=== PATIENT | female | born 1960 | race Caucasian/White ===

== ENCOUNTER 2017-06-22 18:39 | Emergency (ER) | payer MEDICARE, MEDICAID ==
[2017-06-22] MEDS ORDERED: 0.9 % SODIUM CHLORIDE 1,000 ML BAG IV ONE (19:22)
--- NOTE | 2017-06-22 19:25 | Emergency Department Record ---
History of Present Illness - General Chief Complaint: Dizziness Stated Complaint: DIZZY,WEAK Time Seen by Provider: 06/22/17 19:11 Source: Patient, EMS Mode of Arrival: EMS Limitations: No limitations - History of Present Illness Initial Comments: pt brought in via ems for weakness. pt was recently admitted to [facility] for rapid heartrate and had he med increased. since then she has felt extremely weak and has been unable to function. she did take her serequel this afternoon which is unusual as she usually takes it at night. MD Complaint: Other (general weakness) Onset/Timin -: Days(s) Timing: Gradual onset Description: Lightheadedness History of Same: No History of Trauma: No Severity: Moderate Improves With: Nothing Worsens With: Nothing Associated Symptoms: Weakness - [place] Coma Scale Eye Response: (4) Open spontaneously Motor Response: (6) Obeys commands Verbal Response: (5) Oriented [place] Total: 15 - Symptoms of Stroke Symptoms of stroke: Dizziness, Muscle Weakness - Related Data Previous Rx's Medication Instructions Recorded Hydrocodone/Acetaminophen [[place] 1 tab PO Q8H PRN #45 tab 03/12/16 10mg/325mg] Ondansetron [Zofran Odt] 8 mg SL Q8H PRN #45 tab.rapdis 03/21/16 Allergies Allergy/AdvReac Type Severity Reaction Status Date / Time trazodone Allergy SWELLING Verified 06/22/17 18:42 OF THE TONGUE Travel Screening - Travel/Exposure Within Last 30 Days Have you traveled within the last 30 days?: No - Travel/Exposure Within Last Year Have you traveled outside the [place] in the last year?: No - Additonal Travel Details Have you been exposed to anyone with a communicable illness?: No - Travel Symptoms Symptom Screening: None Review of Systems Reviewed: No additional complaints except as noted below Constitutional: Reports: As per HPI. Denies: Chills, Fever, Malaise, Night sweats, Weakness, Weight change Eyes: Reports: As per HPI. Denies: Eye discharge, Eye pain, Photophobia, Vision change ENT: Reports: As per HPI. Denies: Congestion, Dental pain, Ear pain, Epistaxis , Hearing loss, Throat pain Respiratory: Reports: As per HPI. Denies: Cough, Dyspnea, Hemoptysis, Stridor, Wheezes Cardiovascular: Reports: As per HPI. Denies: Arrhythmia, Chest pain, Dyspnea on exertion, Edema, Murmurs, Orthopnea, Palpitations, Paroxysmal nocturnal dyspnea, Rheumatic Fever, Syncope Endocrine: Reports: As per HPI. Denies: Fatigue, Heat or cold intolerance, Polydipsia, Polyuria Gastrointestinal: Reports: As per HPI. Denies: Abdominal pain, Constipation, Diarrhea, Hematemesis, Hematochezia, Melena, Nausea, Vomiting Genitourinary: Reports: As per HPI. Denies: Abnormal menses, Discharge, Dyspareunia, Dysuria, Frequency, Hematuria, Incontinence, Retention, Urgency Musculoskeletal: Reports: As per HPI. Denies: Arthralgia, Back pain, Gout, Joint swelling, Myalgia, Neck pain Skin: Reports: As per HPI. Denies: Bruising, Change in color, Change in hair/ nails, Lesions, Pruritus, Rash Neurological: Reports: As per HPI. Denies: Abnormal gait, Confusion, Headache, Numbness, Paresthesias, Seizure, Tingling, Tremors, Vertigo, Weakness Psychiatric: Reports: As per HPI. Denies: Anxiety, Auditory hallucinations, Depression, Homicidal thoughts, Suicidal thoughts, Visual hallucinations Hematological/Lymphatic: Reports: As per HPI. Denies: Anemia, Blood Clots, Easy bleeding, Easy bruising, Swollen glands Past Medical History - SOCIAL HISTORY Smoking Status: Current every day smoker Alcohol Use: Rare Drug Use: None - MOTEL OPERATOR History MOTEL OPERATOR history: Reports: no MOTEL OPERATOR history - RESPIRATORY Hx Respiratory Disorders: Yes Hx Bronchitis: Yes Hx COPD: Yes - CARDIOVASCULAR Hx Cardio Disorders: Yes Comment:: "fluid on the heart." - NEURO Hx Neuro Disorders: Yes Hx Headaches: Yes - GI Hx GI Disorders: Yes Hx Reflux: Yes Hx Liver Disease: Yes (Hep C from transfusion) - Hx Genitourinary Disorders: No - ENDOCRINE Hx Endocrine Disorders: Yes Hx Diabetes: Yes Hx Thyroid Disease: No - MUSCULOSKELETAL Hx Musculoskeletal Disorders: Yes Hx Back Injury: Yes (DJD) - PSYCH Hx Psych Problems: Yes Hx Anxiety: Yes Hx Depression: Yes - HEMATOLOGY/ONCOLOGY Hx Hematology/Oncology Disorders: Yes Hx Blood Transfusions: Yes Hx Blood Transfusion Reaction: Yes (Hep C from it.) Family Medical History Any Significant Family History?: Yes Hx Cancer: Mother *Cancer Comment: BREAST AND BLADDER Physical Exam - General General Appearance: Alert, Oriented x3, Cooperative, Mild distress, Other (pt appears sedated and talks with her eyes closed) - Head Head exam: Normal inspection - Eye Eye exam: Normal appearance, PERRL, EOMI Pupils: Normal accommodation - ENT ENT exam: Normal exam, Mucous membranes dry, Normal external ear exam, Normal orophraynx Ear exam: Normal external inspection. negative: External canal tenderness Nasal Exam: Normal inspection. negative: Discharge, Sinus tenderness Mouth exam: Normal external inspection, Tongue normal Teeth exam: Normal inspection. negative: Dental caries Throat exam: Normal inspection. negative: Tonsillar erythema, Tonsillar exudate - Neck Neck exam: Normal inspection, Full ROM. negative: Tenderness - Respiratory Respiratory exam: Normal lung sounds bilaterally. negative: Respiratory distress - Cardiovascular Cardiovascular Exam: Regular rate, Normal rhythm, Normal heart sounds, Systolic murmur - GI/Abdominal GI/Abdominal exam: Soft, Normal bowel sounds. negative: Tenderness - Rectal Rectal exam: Deferred - exam: Deferred - Extremities Extremities exam: Normal inspection, Full ROM, Normal capillary refill. negative: Tenderness - Back Back exam: Reports: Normal inspection, Full ROM. Denies: Muscle spasm, Rash noted, Tenderness - Neurological Neurological exam: Alert, CN II-XII intact, Normal gait, Oriented X3 - Psychiatric Psychiatric exam: Normal affect, Normal mood - Skin Skin exam: Dry, Intact, Normal color, Warm Course Vital Signs 06/22/17 18:52 Temperature 98.7 F Pulse Rate 92 H Respiratory 20 Rate Blood Pressure 108/62 Pulse Ox 97 - Reevaluation(s) Reevaluation #1: 06/22/17 21:18 pt feels much better Medical Decision Making - Lab Data Result diagrams: 06/22/17 18:25 06/22/17 18:25 Disposition Disposition: Discharge Clinical Impression: Dehydration Disposition: Home, Self-Care Condition: (1) Good Instructions: Dehydration (ED) Additional Instructions: follow up with family doctor. return sooner if worse. push fluids Forms: Patient Portal Access Quality - Quality Measures Quality Measures: N/A - Blood Pressure Screening Does Patient Have Any of the Following: No Blood Pressure Classification: Normal BP Reading Systolic Measurement: 108 Diastolic Measurement: 62 Screening for High Blood Pressure: < Normal BP, F/U Not Required > [G8783]
[2017-06-22 19:33] LABS: BASO % 0.4 % (0-6); EOS % 2.1 % (0-6); GRAN % 54.1 % (47-80); LYMPH % 33.6 % (16-45); MEAN CELL VOLUME 67.8 fl (81-97); MEAN CORPUSCULAR HGB CONC 31.3 g/dl (32-36); MEAN PLATELET VOLUME 8.4 fl (7.4-10.4); MONO % 9.8 % (0-9); PLATELET COUNT 544 K/uL (130-400); RED BLOOD COUNT 4.72 M/uL (3.80-5.40); WHITE BLOOD COUNT W/O DIFF 8.5 K/uL (4.2-12.2)
[2017-06-22 19:44] LABS: ALB/GLOB RATIO 1.3 (1.1-1.8); ALKALINE PHOSPHATASE 58 U/L (38-126); ALT/SGPT 40 U/L (9-52); ANION GAP 13.8 (7-16); AST/SGOT 22 U/L (14-36); BILIRUBIN,TOTAL 0.44 mg/dL (0.2-1.3); BLOOD UREA NITROGEN 9 mg/dL (7-17); CARBON DIOXIDE 24.2 mmol/L (22-30); CREATININE 0.7 mg/dL (0.52-1.04); EST GLOMERULAR FILTRATION RATE > 60 ml/min; GLUCOSE,RANDOM 197 mg/dL (70-110); TOTAL PROTEIN 7.1 gm/dL (6.3-8.2)
[2017-06-22 19:49] LABS: MEAN CORPUSCULAR HEMOGLOBIN 21.1 pg (27-33)
[2017-06-22 19:50] LABS: RED CELL DISTRIBUTION WIDTH 17.9 % (11.5-14.5)
[2017-06-22 20:10] LABS: ERYTHROCYTE SEDIMENTATION RATE 23 mm/hr (0-30)
[2017-06-22 20:16] LABS: C-REACTIVE PROTEIN < 0.5 mg/dL (0.0-0.9)
[2017-06-22 20:59] LABS: URINE APPEARANCE CLEAR; URINE BILIRUBIN NEGATIVE (NEGATIVE); URINE BLOOD NEGATIVE (NEGATIVE); URINE COLOR YELLOW; URINE KETONE TRACE (NEGATIVE); URINE LEUKOCYTE ESTERASE NEGATIVE (NEGATIVE); URINE NITRITE NEGATIVE (NEGATIVE); URINE PROTEIN NEGATIVE (NEGATIVE); URINE UROBILINOGEN 0.2 E.U./dL (0.20 - 1.00)
[2017-06-22 21:04] LABS: AMPHETAMINE SCREEN URINE NOT DETECTED; BARBITURATE SCREEN URINE NOT DETECTED; BENZODIAZEPINE SCREEN URINE NOT DETECTED; COCAINE SCREEN URINE NOT DETECTED; METHADONE SCREEN URINE NOT DETECTED; METHAMPHETAMINE SCREEN NOT DETECTED; OPIATE SCREEN URINE DETECTED; OXYCODONE SCREEN URINE NOT DETECTED; PHENCYCLIDINE SCREEN URINE NOT DETECTED; PROPOXYPHENE SCREEN URINE NOT DETECTED; THC SCREEN URINE NOT DETECTED; TRICYCLIC ANTIDEPRESSANT SCRN DETECTED
--- NOTE | 2017-06-23 22:56 | RADIOLOGY REPORT ---
EXAM: CHEST 2 VIEWS HISTORY: WEAKNESS AND DIZZINESS AFTER INCREASING CARDIAC MEDICATION FOUR DAYS AGO. TECHNIQUE: Upright PA and lateral views of the chest. COMPARISON: Two-view chest radiographic examination dated 03/08/15. FINDINGS: The cardiomediastinal silhouette is normal in size and configuration. The pulmonary vasculature is nondilated. The lungs and pleural spaces are clear. There are degenerative changes scattered within the visualized spine. IMPRESSION: NO RADIOGRAPHIC EVIDENCE OF ACUTE CARDIOPULMONARY DISEASE WITHOUT SIGNIFICANT CHANGE SINCE 03/08/15. JOB NUMBER: [id number] [facility]
== END 2017-06-22 21:36 | disposition home or self-care (01) ==
LOC: ER 18:39
DX: E86.0 Dehydration (principal); R42 Dizziness and giddiness; M62.81 Muscle weakness (generalized); Z79.899 Other long term (current) drug therapy
CPT/HCPCS: 71020; 80053; 80305; 81003; 84443; 84484; 85025; 85651; 86140; 99284; J7030

== ENCOUNTER 2017-10-29 14:55 | Emergency (ER) | payer MEDICARE, MEDICAID ==
[2017-10-29 15:30] LABS: BASO % 0.4 % (0-6); EOS % 0.9 % (0-6); HEMATOCRIT 29.6 % (35.0-47.0); HEMOGLOBIN 8.5 gm/dl (11.6-16.0); LYMPH % 20.2 % (16-45); MEAN CELL VOLUME 68.8 fl (81-97); MEAN CORPUSCULAR HGB CONC 28.7 g/dl (32-36); MEAN PLATELET VOLUME 8.9 fl (7.4-10.4); MONO % 4.5 % (0-9); PLATELET COUNT 312 K/uL (130-400); RED CELL DISTRIBUTION WIDTH 18.6 % (11.5-14.5); WHITE BLOOD COUNT W/O DIFF 8.5 K/uL (4.2-12.2)
[2017-10-29 15:31] LABS: MEAN CORPUSCULAR HEMOGLOBIN 19.7 pg (27-33)
[2017-10-29 15:32] LABS: URINE APPEARANCE CLEAR; URINE BILIRUBIN NEGATIVE (NEGATIVE); URINE BLOOD NEGATIVE (NEGATIVE); URINE COLOR YELLOW; URINE KETONE TRACE (NEGATIVE); URINE LEUKOCYTE ESTERASE NEGATIVE (NEGATIVE); URINE NITRITE NEGATIVE (NEGATIVE); URINE PROTEIN NEGATIVE (NEGATIVE); URINE UROBILINOGEN 0.2 E.U./dL (0.20 - 1.00)
[2017-10-29 15:33] LABS: URINE GLUCOSE (UA) >=1000 mg/dL (NEGATIVE)
[2017-10-29] MEDS: 0.9 % SODIUM CHLORIDE 1,000 ML BAG IV ONE (15:36)
[2017-10-29 15:40] LABS: ACETONE,SERUM NEGATIVE (NEGATIVE)
[2017-10-29 15:46] LABS: BLOOD UREA NITROGEN 8 mg/dL (6-20); CREATININE 0.7 mg/dL (0.5-0.9); EST GLOMERULAR FILTRATION RATE > 60 mL/min
[2017-10-29 15:47] LABS: TOTAL PROTEIN 7.3 g/dL (6.6-8.7)
[2017-10-29 15:49] LABS: GLUCOSE,RANDOM 222 mg/dL (74-109)
[2017-10-29 15:51] LABS: ALT/SGPT 25 U/L (<33); AST/SGOT 27 U/L (10.0-35.0)
[2017-10-29 15:52] LABS: ALBUMIN 4.5 g/dL (4.0-5.0); ALKALINE PHOSPHATASE 62 U/L (35-104); LIPASE 73 U/L (13-60)
[2017-10-29 15:53] LABS: BILIRUBIN,DIRECT < 0.2 mg/dL (0-0.3)
[2017-10-29] MEDS: ONDANSETRON HCL IV 4 MG/2 ML VIAL IVP ONE ×2 (16:18→16:44)
--- NOTE | 2017-10-29 16:18 | Emergency Department Record ---
History of Present Illness - General Chief complaint: Hypergylcemia Stated complaint: HIGH BLOOD SUGAR Time Seen by Provider: 10/29/17 15:19 Mode of Arrival: Ambulatory - History of Present Illness Initial comments: patient states vomiting and high sugars and no diarrhea and she has a swollen lymph node on the right side under her ear and she had some dental work done on the right side lower about 3 weeks ago. Slight cough and she smokes cigs and trying to stop. No skin lesions and no sore throat and no dysuria Onset/Timin -: Days(s) Location: Generalized Improves with: None Worsens with: None Associated Symptoms: Nausea/vomiting - [place] Coma Scale Eye Response: (4) Open spontaneously Motor Response: (6) Obeys commands Verbal Response: (5) Oriented [place] Total: 15 - Related Data Home Medications Medication Instructions Recorded Confirmed Last Taken Insulin Aspart [Novolog] 1 unit SQ ASDIR 10/29/17 10/29/17 10/29/17 Insulin Glargine,Hum.rec.anlog 50 unit SQ QAM 10/29/17 10/29/17 10/29/17 [Dioni Pat] Oxycodone HCl/Acetaminophen 1 each PO Q8H PRN 10/29/17 10/29/17 Unknown [Percocet 7.5mg/325mg] Previous Rx's Medication Instructions Recorded Hydrocodone/Acetaminophen [[place] 1 tab PO Q8H PRN #45 tab 03/12/16 10mg/325mg] Ondansetron [Zofran Odt] 8 mg SL Q8H PRN #45 tab.rapdis 03/21/16 Ascorbic Acid [Vitamin C] 1,000 mg PO DAILY #100 tablet 10/29/17 Ferrous Sulfate [Feosol] 325 mg PO DAILY #100 tab 10/29/17 Penicillin V Potassium 500 mg PO QID #40 tablet 10/29/17 Allergies Allergy/AdvReac Type Severity Reaction Status Date / Time trazodone Allergy SWELLING Verified 10/29/17 15:01 OF THE TONGUE Travel Screening - Travel/Exposure Within Last 30 Days Have you traveled within the last 30 days?: No Past Medical History - SOCIAL HISTORY Smoking Status: Current every day smoker Alcohol Use: Rare Drug Use: None - PROJECT ESTIMATOR History PROJECT ESTIMATOR history: Reports: no PROJECT ESTIMATOR history - RESPIRATORY Hx Respiratory Disorders: Yes Hx Bronchitis: Yes Hx COPD: Yes - CARDIOVASCULAR Hx Cardio Disorders: Yes Hx CHF: Yes Hx Hypertension: Yes Comment:: smell vessel disease, tachycardia - NEURO Hx Neuro Disorders: Yes Hx Headaches: Yes - GI Hx GI Disorders: Yes Hx Reflux: Yes Hx Liver Disease: Yes (Hep C from transfusion) - Hx Genitourinary Disorders: No - ENDOCRINE Hx Endocrine Disorders: Yes Hx Diabetes: Yes Hx Thyroid Disease: No - MUSCULOSKELETAL Hx Musculoskeletal Disorders: Yes Hx Back Injury: Yes (DJD) - PSYCH Hx Psych Problems: Yes Hx Anxiety: Yes Hx Depression: Yes - HEMATOLOGY/ONCOLOGY Hx Hematology/Oncology Disorders: Yes Hx Blood Transfusions: Yes Hx Blood Transfusion Reaction: Yes (Hep C from it.) Family Medical History Any Significant Family History?: Yes Hx Cancer: Mother *Cancer Comment: BREAST AND BLADDER Physical Exam - General General Appearance: Alert, Oriented x3, Cooperative, No acute distress - Head Head exam: Normal inspection - Eye Eye exam: Normal appearance, PERRL Pupils: Normal accommodation - ENT ENT exam: Normal exam, Mucous membranes moist, Normal external ear exam, Normal orophraynx, TM's normal bilaterally Ear exam: Normal external inspection. negative: External canal tenderness Nasal Exam: Normal inspection. negative: Discharge, Sinus tenderness Mouth exam: Normal external inspection, Tongue normal Teeth exam: Normal inspection. negative: Dental caries Throat exam: Normal inspection. negative: Tonsillar erythema, Tonsillar exudate - Neck Neck exam: Normal inspection, Full ROM. negative: Tenderness - Respiratory Respiratory exam: Normal lung sounds bilaterally. negative: Respiratory distress - Cardiovascular Cardiovascular Exam: Regular rate, Normal rhythm, Normal heart sounds - GI/Abdominal GI/Abdominal exam: Soft, Normal bowel sounds. negative: Tenderness - Rectal Rectal exam: Normal rectal tone (brown stool hemoccult negative) - exam: Deferred - Extremities Extremities exam: Normal inspection, Full ROM, Normal capillary refill. negative: Tenderness - Back Back exam: Reports: Normal inspection, Full ROM. Denies: Muscle spasm, Rash noted, Tenderness - Neurological Neurological exam: Alert, Normal gait, Oriented X3, Reflexes normal - Psychiatric Psychiatric exam: Normal affect, Normal mood - Skin Skin exam: Dry, Intact, Normal color, Warm Course Vital Signs 10/29/17 15:07 Temperature 98.2 F Pulse Rate 127 H Respiratory 18 Rate Blood Pressure 132/73 Pulse Ox 96 Medical Decision Making - Lab Data Result diagrams: 10/29/17 15:10 10/29/17 15:10 Lab Results 10/29/17 10/29/17 10/29/17 Range/Units 15:10 15:10 15:10 WBC 8.5 (4.2-12.2) K/uL RBC 4.30 (3.80-5.40) M/uL Hgb 8.5 L (11.6-16.0) gm/dl Hct 29.6 L (35.0-47.0) % MCV 68.8 L (81-97) fl MCH 19.7 L (27-33) pg MCHC 28.7 L (32-36) g/dl RDW 18.6 H (11.5-14.5) % Plt Count 312 (130-400) K/uL MPV 8.9 (7.4-10.4) fl Gran % 74.0 (47-80) % Lymphocytes % 20.2 (16-45) % Monocytes % 4.5 (0-9) % Eosinophils % 0.9 (0-6) % Basophils % 0.4 (0-6) % Sodium 131 L (136-145) mmol/L Potassium 4.6 H (3.4-4.5) mmol/L Chloride 90 L (98-107) mmol/L Carbon Dioxide 25.0 (22-29) mmol/L Anion Gap 16.0 (7-16) BUN 8 (6-20) mg/dL Creatinine 0.7 (0.5-0.9) mg/dL Estimated GFR > 60 mL/min POC Glucose (70-110) mg/dL Random Glucose 222 H (74-109) mg/dL Calcium 9.7 (8.6-10.0) mg/dL Total Bilirubin 0.20 (0.2-1.0) mg/dL Direct Bilirubin < 0.2 (0-0.3) mg/dL AST 27 (10.0-35.0) U/L ALT 25 (<33) U/L Alkaline Phosphatase 62 (35-104) U/L Total Protein 7.3 (6.6-8.7) g/dL Albumin 4.5 (4.0-5.0) g/dL Lipase 73 H (13-60) U/L Urine Color Yellow Urine Appearance Clear Urine pH 5.5 (5.0-8.0) Ur Specific [place] 1.025 (1.002-1.030) Urine Protein Negative (NEGATIVE) Urine Glucose (UA) >=1000 mg/dl H (NEGATIVE) Urine Ketones Trace H (NEGATIVE) Urine Blood Negative (NEGATIVE) Urine Nitrite Negative (NEGATIVE) Urine Bilirubin Negative (NEGATIVE) Urine Urobilinogen 0.2 (0.20 - 1.00) E.U./dL Ur Leukocyte Esterase Negative (NEGATIVE) Acetone, Qual Negative (NEGATIVE) 10/29/17 Range/Units 15:12 WBC (4.2-12.2) K/uL RBC (3.80-5.40) M/uL Hgb (11.6-16.0) gm/dl Hct (35.0-47.0) % MCV (81-97) fl MCH (27-33) pg MCHC (32-36) g/dl RDW (11.5-14.5) % Plt Count (130-400) K/uL MPV (7.4-10.4) fl Gran % (47-80) % Lymphocytes % (16-45) % Monocytes % (0-9) % Eosinophils % (0-6) % Basophils % (0-6) % Sodium (136-145) mmol/L Potassium (3.4-4.5) mmol/L Chloride (98-107) mmol/L Carbon Dioxide (22-29) mmol/L Anion Gap (7-16) BUN (6-20) mg/dL Creatinine (0.5-0.9) mg/dL Estimated GFR mL/min POC Glucose 237 H (70-110) mg/dL Random Glucose (74-109) mg/dL Calcium (8.6-10.0) mg/dL Total Bilirubin (0.2-1.0) mg/dL Direct Bilirubin (0-0.3) mg/dL AST (10.0-35.0) U/L ALT (<33) U/L Alkaline Phosphatase (35-104) U/L Total Protein (6.6-8.7) g/dL Albumin (4.0-5.0) g/dL Lipase (13-60) U/L Urine Color Urine Appearance Urine pH (5.0-8.0) Ur Specific [place] (1.002-1.030) Urine Protein (NEGATIVE) Urine Glucose (UA) (NEGATIVE) Urine Ketones (NEGATIVE) Urine Blood (NEGATIVE) Urine Nitrite (NEGATIVE) Urine Bilirubin (NEGATIVE) Urine Urobilinogen (0.20 - 1.00) E.U./dL Ur Leukocyte Esterase (NEGATIVE) Acetone, Qual (NEGATIVE) Disposition Clinical Impression: Dental infection Diabetes mellitus Qualifiers: Diabetes mellitus type: type 2 Diabetes mellitus complication status: without complication Diabetes mellitus rn long term care insulin use: with jail use Qualified Code(s): E11.9 - Type 2 diabetes mellitus without complications; Z79.4 - [facility] (current) use of insulin; Z79.4 - [facility] (current) use of insulin; Z79.4 - [facility] (current) use of insulin; Z79.4 - [facility] (current ) use of insulin Anemia Qualifiers: Anemia type: iron deficiency Iron deficiency anemia type: unspecified iron deficiency Qualified Code(s): D50.9 - Iron deficiency anemia, unspecified Disposition: Home, Self-Care Condition: (1) Good Instructions: Type 2 Diabetes in Adults (ED), Gingivostomatitis (ED) Additional Instructions: clear liquids and a bland diet keep balancing sugar four times a day follow up with primary in 1 week take iron once a day and vit c once a a day Prescriptions: Ascorbic Acid [Vitamin C] 1,000 mg PO DAILY #100 tablet Ferrous Sulfate [Feosol] 325 mg PO DAILY #100 tab Penicillin V Potassium 500 mg PO QID #40 tablet Forms: Patient Portal Access Time of Disposition: 17:08 Quality - Quality Measures Quality Measures: N/A - Blood Pressure Screening Does Patient Have Any of the Following: No Blood Pressure Classification: Pre-Hypertensive BP Reading Systolic Measurement: 132 Diastolic Measurement: 73 Screening for High Blood Pressure: < Pre-Hypertensive BP, F/U Documented > [ G8950] Pre-Hypertensive Follow-up Interventions: Referral to alternative/primary care provider.
== END 2017-10-29 17:20 | disposition home or self-care (01) ==
LOC: ER 14:55
DX: E11.65 Type 2 diabetes mellitus with hyperglycemia (principal); K04.7 Periapical abscess without sinus; D50.9 Iron deficiency anemia, unspecified; R11.2 Nausea with vomiting, unspecified; R05 Cough; J44.9 Chronic obstructive pulmonary disease, unspecified; I10 Essential (primary) hypertension; F17.210 Nicotine dependence, cigarettes, uncomplicated; Z79.4 Long term (current) use of insulin
CPT/HCPCS: 36416; 80048; 80076; 81003; 82009; 82948; 83540; 83690; 85025; 96361; 96374; 96375; 99284; J2405; J7030

== ENCOUNTER 2017-12-26 12:08 | Day surgery (SDC) | payer MEDICARE, MEDICAID ==
[2017-12-26] MEDS ORDERED: LIDOCAINE 2% MDV (20MG/ML) 20ML VIAL IV ONE (12:09)
[2017-12-26] MEDS ORDERED: ETOMIDATE 20MG/10ML VIAL IVP ONE (12:09)
[2017-12-26] MEDS ORDERED: FENTANYL PF 100MCG/2ML VIAL IV ONE (12:09)
--- NOTE | 2017-12-30 07:40 | Operative Note ---
DATE OF SURGERY: 12/26/2017 REQUESTING PHYSICIAN: Josue Barakat MD SURGEON: Leti Mccracken MD POSTOPERATIVE DIAGNOSES: 1. Normal esophagus. 2. Mild gastritis. 3. Normal duodenum. OPERATION: ESOPHAGOGASTRODUODENOSCOPY and exam. REASON FOR PROCEDURE: This is a 57-year-old female whose last colonoscopy was about 4 years ago, and was noted to have iron deficiency anemia presenting for esophagogastroduodenoscopy. SEDATION: Sedation as per anesthesia. Pulse oximetry was monitored throughout the duration of the procedure to maintain O2 saturation of 90% or greater. Supplemental oxygen was administered via nasal cannula. Cardiac and vital signs were monitored throughout the duration of the procedure and they were stable. PROCEDURE: Description of the procedure of esophagogastroduodenoscopy, risks and alternatives to the procedure including the risk of bleeding and perforation among others were explained to the patient who voiced understanding and decided to proceed. Physical examination was performed and the patient was found stable for sedation. The patient was then placed in the left lateral position and sedation was initiated. A plastic bite block was inserted into the oral cavity. A lubricated Olympus GIF-180 gastroscope was then placed through the posterior oropharynx and under direct visualization was advanced through the proximal esophagus without difficulty. The esophagus was carefully examined upon insertion of the gastroscope. The proximal, mid and distal esophageal mucosa appeared normal. The gastroscope was then advanced to the stomach. Serial examination of the stomach revealed diffuse erythema along the gastric body and antrum, but no ulcers were noted. The gastroscope was then advanced to the descending duodenum without difficulty. The duodenal bulb and descending duodenal mucosa appeared normal. The gastroscope was then withdrawn into the stomach and retroflexion was performed. There were no other lesions noted. The gastroscope was then straightened and withdrawn, very carefully re-examining the gastric and esophageal mucosa and no other lesions were noted. Multiple duodenal and gastric biopsies were obtained. The gastroscope was then withdrawn and the procedure was terminated. The patient tolerated the procedure well without any complications. The patient remained with stable vital signs and was sent to the recovery room. PLAN AND RECOMMENDATIONS: 1. She is to continue on her proton pump inhibitors. 2. The patient will have repeat colonoscopy given her severe iron deficiency anemia. Thank you for allowing me to participate in the care of this patient. CC: Josue Barakat MD [facility]ALTH CENTERHardeep
== END 2017-12-26 13:30 | disposition home or self-care (01) ==
LOC: HOP 12:08
PROVIDERS: ATTEND Internal Medicine Gastroenterology
DX: K29.50 Unspecified chronic gastritis without bleeding (principal); J44.9 Chronic obstructive pulmonary disease, unspecified; E11.9 Type 2 diabetes mellitus without complications; Z79.4 Long term (current) use of insulin; Z79.84 Long term (current) use of oral hypoglycemic drugs; E78.00 Pure hypercholesterolemia, unspecified
CPT/HCPCS: 43239; 00731; 88305; J3010

== ENCOUNTER 2018-02-06 11:29 | Day surgery (SDC) | payer MEDICARE, MEDICAID ==
[2018-02-06] MEDS ORDERED: ONDANSETRON HCL IV 4 MG/2 ML VIAL IVP ONE (11:30)
[2018-02-06] MEDS ORDERED: MIDAZOLAM HCL 2MG/2ML VIAL IV ONE (11:30)
[2018-02-06] MEDS ORDERED: PROPOFOL 10 MG/ML VIAL IV ONE (11:30)
[2018-02-06] MEDS ORDERED: LIDOCAINE 2% MDV (20MG/ML) 20ML VIAL IV ONE (11:30)
--- NOTE | 2018-02-09 12:40 | Operative Note ---
DATE OF SURGERY: 02/06/2018 SURGEON: Leti Mccracken MD OPERATION: COLONOSCOPY. INDICATIONS: This is a 57-year-old female with history of iron deficiency anemia who presented for colonoscopy. POSTOPERATIVE DIAGNOSES: 1. Normal colon with no neoplastic or ulcerative lesions. 2. Otherwise normal colon. ANESTHESIA: Sedation is per Anesthesia. Pulse oximetry was monitored throughout the procedure to maintain O2 saturation of 90% or greater. Supplemental oxygen was administered via nasal cannula. Cardiac and vital signs were monitored throughout the duration of the procedure, and they were stable. The procedure of colonoscopy and risks and alternatives of the procedure, including the risk of bleeding and perforation, among others, were explained to the patient who voiced understanding and agreed to have the procedure done. Physical examination was performed, and the patient was found stable for sedation. PROCEDURE: The patient was placed in the left lateral position. Sedation was initiated. A digital rectal exam was performed and showed some mild external hemorrhoids with no palpable rectal masses. An Olympus PCF-180AL colonoscope was then inserted into the rectum under direct visualization. It was advanced to the cecum without difficulty. The ileocecal valve and appendiceal orifice were identified and photographed. The colonic mucosa was carefully examined upon introduction of the colonoscope. There were no lesions noted. The colonoscope was then withdrawn while carefully examining the colonic mucosal surfaces. No lesions were noted. In the rectum, retroflexion was performed and grade 1 internal hemorrhoids were noted. The colonoscope was then withdrawn and the procedure was terminated. The patient tolerated the procedure well without any immediate complications. The patient remained with stable vital signs and was transferred to the recovery room. RECOMMENDATIONS: 1. The patient should be on a high-fiber diet. 2. The patient is to have a repeat colonoscopy for screening in about 10 years. Thank you for allowing me to participate in the care of your patient. CC: Dr. Josue CELIS
== END 2018-02-06 13:35 | disposition home or self-care (01) ==
LOC: HOP 11:29
PROVIDERS: ATTEND Internal Medicine Gastroenterology
DX: D50.9 Iron deficiency anemia, unspecified (principal); K21.9 Gastro-esophageal reflux disease without esophagitis; E11.9 Type 2 diabetes mellitus without complications; Z79.4 Long term (current) use of insulin; J44.9 Chronic obstructive pulmonary disease, unspecified; E78.00 Pure hypercholesterolemia, unspecified; I10 Essential (primary) hypertension
CPT/HCPCS: 00811; G0121; J2405

== ENCOUNTER 2019-01-07 06:30 | Day surgery (SDC) | payer MEDICARE, MEDICAID ==
[~2019-01-07 06:30] MED LIST: ACETAMINOPHEN 1,000 MG/100 ML BTL IV ONE
[2019-01-07] MEDS ORDERED: KETAMINE HCL 100MG/1ML VIAL INJ ONE (06:31)
[2019-01-07] MEDS ORDERED: FENTANYL PF 100MCG/2ML VIAL IV ONE (06:31)
[2019-01-07] MEDS ORDERED: MIDAZOLAM HCL 2MG/2ML VIAL IV ONE (06:31)
[2019-01-07] MEDS ORDERED: LIDOCAINE 1% MPF 100MG/10ML STERILE-PAK AMPULE SQ ONE (08:06)
--- NOTE | 2019-01-08 07:51 | Operative Note ---
DATE OF SURGERY: 01/07/2019 Surgeon: Harvinder Turner DO PREOPERATIVE DIAGNOSIS: Trigger finger of the right ring finger. POSTOPERATIVE DIAGNOSIS: Trigger finger of the right ring finger. OPERATION: Tenotomy A1 cruzito right ring finger using 3.5 loop magnification. DESCRIPTION OF PROCEDURE: This 58-year-old female was taken to the operating room and placed in the supine position on the operating room table. Assisted local anesthesia was used and the right upper extremity was elevated, prepped with Hibiclens, and draped in the usual sterile fashion. It was exsanguinated and the tourniquet inflated to 250 mmHg. Xylocaine 1% plain was used as a local anesthetic. An incision was then made in the palmar aspect of the hand overlying the 4th metacarpal head on the lower surface. Dissection was carried down through the skin and subcutaneous tissue. The proximal edge of the A1 cruzito was easily identified. Then it was split from its proximal to its distal margin under direct vision. The sublimis tendon demonstrated nodularity of the tendon but once the cruzito was opened, she had full free range of motion with no catching or locking. The wound was irrigated. Hemostasis obtained with the electrocautery. The wound closed with interrupted 6-0 nylon suture. Sterile dressings were applied and the patient taken to the recovery room in satisfactory condition. GROSS PATHOLOGY: There was nodularity of the sublimis tendon consistent with trigger finger as described above. CC: Dr. Abhinav CELIS
== END 2019-01-07 08:48 | disposition home or self-care (01) ==
LOC: SUR 06:30
PROVIDERS: ATTEND Orthopaedic Surgery
DX: M65.341 Trigger finger, right ring finger (principal); I10 Essential (primary) hypertension; E11.9 Type 2 diabetes mellitus without complications; Z79.4 Long term (current) use of insulin; E78.00 Pure hypercholesterolemia, unspecified; R42 Dizziness and giddiness; F31.9 Bipolar disorder, unspecified; B19.20 Unspecified viral hepatitis C without hepatic coma; J44.9 Chronic obstructive pulmonary disease, unspecified; G47.33 Obstructive sleep apnea (adult) (pediatric)
CPT/HCPCS: 26055; 01810; J3010; J3490

== ENCOUNTER → 2019-01-21 | Day surgery (SDC) | payer MEDICARE, MEDICAID ==
[~2019-01-21] MED LIST changes: -ACETAMINOPHEN 1,000 MG/100 ML BTL IV ONE; +FENTANYL PF 100MCG/2ML VIAL IV ONE; +LIDOCAINE 1% MDV (10MG/ML) 20ML VIAL SQ ONE; +LIDOCAINE 2% MDV (20MG/ML) 20ML VIAL IV ONE; +MIDAZOLAM HCL 2MG/2ML VIAL IV ONE; +PROPOFOL 10 MG/ML VIAL IV ONE; +RINGERS SOLUTION,LACTATED 1,000 ML IV ONE; +SUFENTANIL CITRATE 50 MCG/ML AMPUL IV ONE
--- NOTE | 2019-01-22 07:10 | Operative Note ---
DATE OF SURGERY: 01/21/2019 Surgeon: Harvinder Turner DO PREOPERATIVE DIAGNOSIS: Trigger finger of the left middle finger. POSTOPERATIVE DIAGNOSIS: Trigger finger of the left middle finger. OPERATION: Tenotomy A1 cruzito left middle finger using 3.5 loop magnification. DESCRIPTION OF PROCEDURE: This 58-year-old female was taken to the operating room and placed in the supine position on the operating room table. The left upper extremity was elevated, prepped with Hibiclens, and draped in the usual sterile fashion. It was exsanguinated and the tourniquet inflated to 250 mmHg. A palmar incision was made vertically overlying the 3rd metacarpal head on the palmar surface of the hand, and dissection was carried down through the skin and subcutaneous tissue. The A1 cruzito was easily identified. Blunt and sharp dissection was carried down through the proximal and distal margins so it could be clearly identified. Under direct vision, the A1 cruzito was incised longitudinal from proximal to distal with the canal under direct vision. The tendons were normal, and once it had been decompressed, full range of motion with no catching or locking of the finger was identified. The wound was irrigated and closed with 6-0 nylon suture. Sterile dressings were applied and the patient taken to the recovery room in satisfactory condition. GROSS PATHOLOGY: This patient had a nodularity of the sublimis tendon of the left middle finger which was impinging in the A1 cruzito which was released as described above. CC: Josue CELIS
== END | disposition home or self-care (01) ==
LOC: SUR 10:58
PROVIDERS: ATTEND Orthopaedic Surgery
DX: M65.332 Trigger finger, left middle finger (principal); I10 Essential (primary) hypertension; E11.9 Type 2 diabetes mellitus without complications; Z79.4 Long term (current) use of insulin; B19.20 Unspecified viral hepatitis C without hepatic coma; F31.9 Bipolar disorder, unspecified; E78.00 Pure hypercholesterolemia, unspecified; J44.9 Chronic obstructive pulmonary disease, unspecified; F17.210 Nicotine dependence, cigarettes, uncomplicated
CPT/HCPCS: 26055; 01810; 36416; 82948; J3010; J7120

== ENCOUNTER 2019-01-24 21:16 | Emergency (ER) | payer MEDICARE, MEDICAID ==
--- NOTE | 2019-01-24 21:31 | Emergency Department Record ---
History of Present Illness - General Chief Complaint: Shortness of breath Stated Complaint: FEVER,ANEL,LIGHTHEADED WEAKNESS Time Seen by Provider: 01/24/19 21:27 Source: Patient Mode of Arrival: Ambulatory Limitations: No limitations - History of Present Illness Initial Comments: 58 yo female presents to ED for evaluation of fever, body aches, headache, and non-productive cough symptoms for the past several days. Patient denies abdominal pain, nausea, vomiting, or urinary symptoms on examination. Patient denies health problems other than COPD. Patient does reports current smoking history, denies any recent ill contacts that she is aware of. Patient reports taking Tylenol approximately 40 minutes ago. MD Complaint: Cough, Shortness of breath Onset/Timin -: Days(s) Severity: Moderate Consistency: Constant Improves With: Nothing Worsens With: Nothing Known History Of: COPD Context: Recent URI Associated Symptoms: Denies other symptoms - Related Data Home Oxygen Therapy: No Home Medications Medication Instructions Recorded Confirmed Last Taken Lisinopril 40 mg PO DAILY 01/24/19 01/24/19 Unknown Meclizine HCl [Antivert] 25 mg PO BID 01/24/19 01/24/19 Unknown Metoprolol Succinate 50 mg PO DAILY 01/24/19 01/24/19 Unknown Sofosbuvir/Velpatasvir [Epclusa 1 each PO DAILY 01/24/19 01/24/19 Unknown 400 mg-100 mg Tablet] Previous Rx's Medication Instructions Recorded Ondansetron [Zofran Odt] 8 mg SL Q8H PRN #45 tab.rapdis 03/21/16 Azithromycin [Zithromax] 250 mg PO DAILY #6 tab 01/24/19 Prednisone [Prednisone 20Mg] 20 mg PO BID #10 tab 01/24/19 Allergies Allergy/AdvReac Type Severity Reaction Status Date / Time trazodone Allergy SWELLING Verified 01/24/19 21:24 OF THE TONGUE fentanyl AdvReac HEADACHE Verified 01/24/19 21:24 gabapentin [From Neurontin] AdvReac "FOGGY" Verified 01/24/19 21:24 ketamine AdvReac BEHAVIORAL Verified 01/24/19 21:24 CHANGES varenicline [From Chantix] AdvReac BEHAVIORAL Verified 01/24/19 21:24 CHANGES Review of Systems Constitutional: Reports: Fever, Malaise, Weakness. Denies: Chills, Night sweats Eyes: Denies: Eye discharge, Eye pain ENT: Reports: Congestion. Denies: Ear pain, Epistaxis, Throat pain Respiratory: Reports: Cough, Dyspnea Cardiovascular: Reports: Dyspnea on exertion. Denies: Chest pain, Edema, Palpitations Endocrine: Denies: Fatigue, Heat or cold intolerance Gastrointestinal: Denies: Abdominal pain, Nausea, Vomiting Genitourinary: Denies: Incontinence, Retention Musculoskeletal: Reports: Myalgia. 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 - RESPIRATORY Hx Respiratory Disorders: Yes Hx Bronchitis: Yes Hx COPD: Yes (CONTROLLED WITH INHALERS NO RECENT EXACERBATIONS) Hx Pneumonia: Yes (YRS AGO) Hx Sleep Apnea: Yes (IN PAST) Hx of CPAP: No - CARDIOVASCULAR Hx Cardio Disorders: Yes Hx Hypertension: Yes (ON MEDS W FAIR CONTROL RECENT INCREASE IN TOPROL) Hx Irregular Heartbeat: Yes (HX SVT RECENT INCREASE TOPROL TO CONTROL) Hx Vascular Disease: Yes (CAROTIDS BEING MONITORED) Comment:: HX PERICARDIAL EFFUSION IMPROVING - NEURO Hx Neuro Disorders: Yes Hx Dizziness: Yes (VERTIGO) Hx of Migraines: Yes (ONCE A WEEK CAN LAST 7-10 DAYS) Hx Neuropathy: Yes (legs) Hx Seizures: Yes (IN PAST FROM LOW BLOOD SUGARS NO PROBLEMS OVER THE PAST YEAR) - GI Hx GI Disorders: Yes Hx Abdominal Pain: No (DENIES) Hx Reflux: Yes (OFF MEDS DUE TO HEP C MEDS) Hx Hepatitis/Jaundice: Yes (HEP C BEING TREATED WITH GOOD SUCCESS) Hx Nausea/Vomiting: No (OCCASSIONALLY) Hx Pancreatitis: Yes (HX OF INTERFERON TX'S CAUSED PANCREASE PROBLEMS) Hx Wt Loss/Wt Gain: Yes (15 LB GAIN OVER LAST COUPLE OF YEARS) - Hx Genitourinary Disorders: No - ENDOCRINE Hx Endocrine Disorders: Yes Hx Diabetes: Yes (DX'D 2000) Hx Thyroid Disease: No Comment:: VERY BRITTLE - MUSCULOSKELETAL Hx Musculoskeletal Disorders: Yes Hx Arthritis: Yes Hx Back Injury: No (DENIES) - PSYCH Hx Psych Problems: Yes Hx Anxiety: Yes Hx Depression: Yes Hx Suicide Attempt: Yes (YRS AGO) - HEMATOLOGY/ONCOLOGY Hx Hematology/Oncology Disorders: Yes Hx Anemia: Yes (RESOLVED WITH IRON INFUSIONS) Hx Blood Transfusions: Yes (CONTRACTED HEP C 1978) Hx Blood Transfusion Reaction: No Family Medical History Hx Cancer: Mother *Cancer Comment: BREAST AND BLADDER Physical Exam - General General Appearance: Alert, Oriented x3, Cooperative, Mild distress Limitations: No limitations - Head Head exam: Atraumatic, Normocephalic, Normal inspection Head exam detail: negative: Abrasion, Contusion, Sheikh's sign, General tenderness, Hematoma, Laceration - Eye Eye exam: Normal appearance. negative: Conjunctival injection, Periorbital swelling, Periorbital tenderness, Scleral icterus - ENT Ear exam: negative: Auricular hematoma, Auricular trauma Nasal Exam: negative: Active bleeding, Discharge, Dried blood, Foreign body Mouth exam: negative: Drooling, Laceration, Muffled voice, Tongue elevation - Neck Neck exam: Normal inspection. negative: Meningismus, Tenderness - Respiratory Respiratory exam: Normal lung sounds bilaterally. negative: Rales, Respiratory distress, Rhonchi, Stridor - Cardiovascular Cardiovascular Exam: Regular rate, Normal rhythm, Normal heart sounds - GI/Abdominal GI/Abdominal exam: Soft. negative: Rebound, Rigid, Tenderness - Rectal Rectal exam: Deferred - exam: Deferred - Extremities Extremities exam: Normal inspection. negative: Pedal edema, Tenderness - Back Back exam: Denies: CVA tenderness (R), CVA tenderness (L) - Neurological Neurological exam: Alert, Normal gait, Oriented X3 - Psychiatric Psychiatric exam: Normal affect, Normal mood - Skin Skin exam: Normal color. negative: Abrasion Type of lesion: negative: abrasion Course - Reevaluation(s) Reevaluation #1: 01/24/19 21:52 Influenza: Negative Reevaluation #2: 01/24/19 22:01 CXR: No acute process Patient was updated on all results, will treat with Prednsione and Zithromax as directed for her symptoms. Patient appears stable for discharge at this time. Disposition Disposition: Discharge Clinical Impression: Bronchitis Disposition: Home, Self-Care Condition: (2) Stable Instructions: Acute Bronchitis (ED) Additional Instructions: Return to ED if your symptoms worsen or if you have any concerns. Zithromax and Prednisone as directed. Follow-up with your family doctor in 3-5 days as directed. Prescriptions: Azithromycin [Zithromax] 250 mg PO DAILY #6 tab Prednisone [Prednisone 20Mg] 20 mg PO BID #10 tab Forms: Patient Portal Access Time of Disposition: 22:03 Quality - Quality Measures Quality Measures: N/A - Blood Pressure Screening Does Patient Have Any of the Following: No Blood Pressure Classification: Hypertensive Reading Systolic Measurement: 162 Diastolic Measurement: 73 Screening for High Blood Pressure: < First Hypertensive BP, F/U Documented > [ [id number]] First Hypertensive Follow-up Interventions: Referral to alternative/primary care provider.
[2019-01-24 21:49] LABS: INFLUENZA A NEGATIVE (NEGATIVE); INFLUENZA B NEGATIVE (NEGATIVE)
--- NOTE | 2019-01-26 13:25 | RADIOLOGY REPORT ---
EXAM: CHEST, TWO VIEWS HISTORY: DIFFICULTY BREATHING. TECHNIQUE: Two views of the chest were obtained. FINDINGS: The lungs are clear. The cardiac size and pulmonary vascularity are normal. There are no effusions. IMPRESSION: NEGATIVE CHEST. JOB NUMBER: [id number] MTDD
== END 2019-01-24 22:23 | disposition home or self-care (01) ==
LOC: ER 21:16
DX: J20.9 Acute bronchitis, unspecified (principal); F17.210 Nicotine dependence, cigarettes, uncomplicated
CPT/HCPCS: 71046; 87400; 99283

== ENCOUNTER 2019-08-03 12:18 | Day surgery (SDC) | payer MEDICARE, MEDICAID ==
[~2019-08-03 12:18] MED LIST changes: +ACETAMINOPHEN 1,000 MG/100 ML BTL IVPB ONE; -FENTANYL PF 100MCG/2ML VIAL IV ONE; -LIDOCAINE 1% MDV (10MG/ML) 20ML VIAL SQ ONE; -LIDOCAINE 2% MDV (20MG/ML) 20ML VIAL IV ONE; -MIDAZOLAM HCL 2MG/2ML VIAL IV ONE; -PROPOFOL 10 MG/ML VIAL IV ONE; -RINGERS SOLUTION,LACTATED 1,000 ML IV ONE; -SUFENTANIL CITRATE 50 MCG/ML AMPUL IV ONE
[2019-08-03] MEDS ORDERED: MIDAZOLAM HCL 2MG/2ML VIAL IV ONE (12:19)
[2019-08-03] MEDS ORDERED: LIDOCAINE 2% MDV (20MG/ML) 20ML VIAL IV ONE (12:19)
[2019-08-03] MEDS ORDERED: PROPOFOL 10 MG/ML VIAL IV ONE (12:19)
[2019-08-03] MEDS ORDERED: RINGERS SOLUTION,LACTATED 1,000 ML IV ONE ×2 (12:40→12:57)
[2019-08-03] MEDS ORDERED: LIDOCAINE 1% MPF 100MG/10ML STERILE-PAK AMPULE SQ ONE (13:10)
--- NOTE | 2019-08-04 08:20 | Operative Note ---
DATE OF SURGERY: 08/03/2019 SURGEON: Harvinder Turner DO PREOPERATIVE DIAGNOSIS: Trigger finger, right index finger. POSTOPERATIVE DIAGNOSIS: Trigger finger, right index finger. OPERATION: Tenotomy A1 cruzito right index finger using 3.5 loop magnification. DESCRIPTION OF PROCEDURE: This 58-year-old female was taken to the operating room and placed in the supine position on the operating room table. Assisted local anesthesia was used, 1% Xylocaine plain was used as a local anesthetic. The right upper extremity was prepped with Hibiclens and draped in the usual sterile fashion. The area on the palmar surface of the hand overlying the head of the 2nd metacarpal was anesthetized with 1% Xylocaine. Approximately 1.5 cm incision was made overlying the A1 cruzito. Dissection was carried down through the skin and subcutaneous tissue. The cruzito was opened, and marked thickening of the tenosynovium was identified. A small portion of this was excised but it was not sent to pathology. There was a considerable amount of synovial fluid also present. This was then irrigated and the tendon itself appeared to be entire normal. Flexion/extension of the finger did not demonstrate any catching or locking of the tendon. Some nodularity of the sublimis tendon to the index finger was identified. The wound was again irrigated and closed with interrupted 6-0 nylon suture. Sterile dressings were applied. The patient taken to the recovery room in satisfactory condition. GROSS PATHOLOGY: Marked thickening of the tenosynovium of the tendons to the index finger was identified as described above. VIMAL
== END 2019-08-03 13:45 | disposition home or self-care (01) ==
LOC: SUR 12:18
PROVIDERS: ATTEND Orthopaedic Surgery
DX: M65.321 Trigger finger, right index finger (principal); I10 Essential (primary) hypertension; K21.9 Gastro-esophageal reflux disease without esophagitis; E11.9 Type 2 diabetes mellitus without complications; Z79.01 Long term (current) use of anticoagulants; E78.00 Pure hypercholesterolemia, unspecified; F31.9 Bipolar disorder, unspecified; J44.9 Chronic obstructive pulmonary disease, unspecified; R05 Cough; B19.20 Unspecified viral hepatitis C without hepatic coma
CPT/HCPCS: 36416; 82948; J3490; J7120